=== PATIENT | male | born 1970 | race Caucasian/White ===

== ENCOUNTER 2018-07-19 12:40 | Emergency (ER) | payer MEDICAID ==
[2018-07-19 14:21] LABS: PLATELET COUNT 207 10^3/uL (150-400)
[2018-07-19 14:29] LABS: INR 1.03 (0.83-1.16); PROTIME(PATIENT) 13.1 SEC (12.0-15.0)
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
[2018-07-19 15:55] VITALS: BP 142/108
== END 2018-07-19 16:07 | disposition home or self-care (01) ==
DX: K62.5 Hemorrhage of anus and rectum (principal); J06.9 Acute upper respiratory infection, unspecified